=== PATIENT | female | born 1985 | race Caucasian/White ===

== ENCOUNTER 2019-05-28 15:39 | Emergency (ER) | payer MEDICAID ==
[~2019-05-28] VITALS: Ht 160 cm; Wt 87.1 kg
[2019-05-28 16:13] VITALS: BP 125/50
[2019-05-28 19:39] LABS: Basophils # (auto) 0.1 uL; Eosinophils # (auto) 0.2 uL; Eosinophils % (auto) 2.4 % (0.0-7.0); Hematocrit 40.7 % (36.0-46.0); Hemoglobin 13.1 g/dL (12.2-16.2); Lymphocytes % (auto) 39.2 % (10.0-50.0); Mean Corpuscular Hemoglobin 28.4 pg (28.0-32.0); Mean Corpuscular Hgb Conc. 32.2 g/dL (32.0-36.0); Mean Corpuscular Volume 88.3 fL (80.0-100.0); Monocytes # (auto) 0.5 uL; Monocytes % (auto) 5.2 % (0.0-12.0); Neutrophils # (auto) 5.4 uL; Neutrophils % (auto) 52.2 % (37.0-80.0); Nucleated Red Blood Cells % 0.1 %; Platelet Count (auto) 367 10^3/uL (140-450); Red Blood Cells 4.61 10^6/uL (4.0-5.20); Red Cell Distribution Width 15.7 % (11.8-14.3); White Blood Cell 10.3 10^3/uL (4.4-10.8)
[2019-05-28 19:50] LABS: Calcium 9.2 mg/dL (8.5-10.1)
[2019-05-28 19:53] LABS: BUN/Creatinine Ratio 15.6; Bilirubin, Total 0.3 mg/dL (0.2-1.0); Total Protein 8.4 g/dL (6.4-8.2)
[2019-05-28 19:54] LABS: INR 0.95 (0.9-1.15); Partial Thromboplastin Time 27.2 sec (23.64-32.05)
== END 2019-05-28 23:00 | disposition home or self-care (01) ==
LOC: ER 15:39
DX: Z32.01 Encounter for pregnancy test, result positive (principal); F17.210 Nicotine dependence, cigarettes, uncomplicated
CPT/HCPCS: 36415; 76801; 80053; 84702; 85025; 85610; 85730; 86850; 86900; 86901; 94761

== ENCOUNTER 2019-05-30 10:04 | Emergency (ER) | payer MEDICAID ==
[~2019-05-30] VITALS: Ht 160 cm; Wt 87.5 kg
[2019-05-30 10:51] VITALS: BP 101/35
== END 2019-05-30 11:44 | disposition home or self-care (01) ==
LOC: ER 10:04
DX: Z32.01 Encounter for pregnancy test, result positive (principal); F17.210 Nicotine dependence, cigarettes, uncomplicated; J45.909 Unspecified asthma, uncomplicated; Z98.51 Tubal ligation status; Z98.890 Other specified postprocedural states
CPT/HCPCS: 36415; 84702

== ENCOUNTER 2020-01-22 04:10 | Inpatient (IN) | payer MEDICAID ==
[2020-01-22] VITALS (11 sets, daily range): BP systolic 116–141; BP diastolic 58–92
[~2020-01-22] VITALS: Ht 160 cm; Wt 92.1 kg
[2020-01-22] MEDS ORDERED: FERR1TAB36 PO (04:53)
[2020-01-22] MEDS ORDERED: PREN-153 OR (04:53)
[2020-01-22] MEDS: LACTATED RINGER'S 1,000 ML IV SCH ×3 (06:12→17:38)
[2020-01-22 07:06] LABS: Basophils # (auto) 0.1 10 ^3/uL (0-0.2); Basophils % (auto) 0.5 % (0.0-2.0); Eosinophils # (auto) 0.2 10 ^3/uL (0-0.8); Eosinophils % (auto) 1.8 % (0.0-7.0); Hematocrit 29.9 % (36.0-46.0); Hemoglobin 10.2 g/dL (12.2-16.2); Lymphocytes # (auto) 2.6 10 ^3/uL (0.4-5.4); Lymphocytes % (auto) 22.8 % (10.0-50.0); Mean Corpuscular Hemoglobin 33.4 pg (28.0-32.0); Mean Corpuscular Hgb Conc. 34.2 g/dL (32.0-36.0); Mean Corpuscular Volume 97.8 fL (80.0-100.0); Monocytes # (auto) 0.5 10 ^3/uL (0-1.3); Monocytes % (auto) 4.2 % (0.0-12.0); Neutrophils # (auto) 8.1 10 ^3/uL (1.6-8.6); Neutrophils % (auto) 70.7 % (37.0-80.0); Platelet Count (auto) 275 10^3/uL (140-450); Red Blood Cells 3.05 10^6/uL (4.0-5.20); Red Cell Distribution Width 13.5 % (11.8-14.3); White Blood Cell 11.5 10^3/uL (4.4-10.8)
[2020-01-22 07:07] LABS: INR 1.03 (0.9-1.15); Partial Thromboplastin Time 25.4 sec (23.64-32.05)
[2020-01-22 07:10] LABS: Urine Amorphous Crystal MANY /hpf (None Seen); Urine Bacteria FEW /hpf (None Seen); Urine Blood Negative /uL (Negative); Urine Mucus FEW (None Seen); Urine Specific Gravity 1.012 (1.001-1.035); Urine WBC 5 /hpf (0 - 5)
[2020-01-22 07:28] LABS: Albumin 2.4 g/dL (3.4-5.0); Calcium 9.5 mg/dL (8.5-10.1)
[2020-01-22 07:29] LABS: Alcohol, Urine < 3.0 mg/dL (0-5); Amphetamine Screen, Urine NEGATIVE (NEGATIVE); Barbiturate Scree,Urine NEGATIVE (NEGATIVE); Benzodiazephine Screen, Urine NEGATIVE (NEGATIVE); Cannabinoid Screen, Urine NEGATIVE (NEGATIVE); Cocaine Screen, Urine NEGATIVE (NEGATIVE); Opiate Scree,Urine NEGATIVE (NEGATIVE); Phencyclidine Screen, Urine NEGATIVE (NEGATIVE)
[2020-01-22 07:34] LABS: BUN/Creatinine Ratio 9.7; Bilirubin, Total 0.3 mg/dL (0.2-1.0); Total Protein 6.3 g/dL (6.4-8.2)
[2020-01-22 07:35] LABS: Potassium 2.7 mmol/L (3.5-5.1)
[2020-01-22] MEDS ORDERED: POTASSIUM CHL 20MEQ/100ML 100 ML IV ONE ×3 (07:49→11:38)
[2020-01-22] MEDS: POTASSIUM CHL 20MEQ/100ML 100 ML IV SCH ×2 (07:57→11:57)
[2020-01-22] MEDS ORDERED: SUCCINYLCHOLINE CHLORIDE 20 MG/ML 10ML VIAL IV ONE (08:25)
[2020-01-22] MEDS ORDERED: fentaNYL CITRATE 100 MCG/2 ML VL ONE ×2 (08:26→09:36)
[2020-01-22] MEDS ORDERED: MORPHINE SULF(PF) 0.5MG/ML 10ML VIAL ONE (08:26)
[2020-01-22] MEDS ORDERED: ceFAZolin 1GM/50ML 50 ML IV SCH (09:00)
[2020-01-22] MEDS ORDERED: MORPHINE SULF INJ 2 MG/ML SYRINGE 1ML IV PRN ×2 (09:00→11:30)
[2020-01-22] MEDS ORDERED: ONDANSETRON HCL 4 MG/2 ML VIAL IV PRN ×2 (09:00→10:45)
[2020-01-22] MEDS ORDERED: ROCURONIUM 10MG/ML 10ML VIAL IV ONE (09:33)
[2020-01-22] MEDS ORDERED: CARBOPROST TROMETHAMINE 250 MCG/1ML VIAL IM ONE (09:34)
[2020-01-22] MEDS ORDERED: GLYCOPYRROLATE 0.2 MG/ML 1ML VIAL ONE (10:16)
[2020-01-22] MEDS ORDERED: OXYTOCIN 10UNIT/ML 1ML VIAL ONE (10:23)
[2020-01-22] MEDS ORDERED: HYDROmorphone HCL 2 MG/ML VL ONE (10:33)
[2020-01-22] MEDS: HYDROmorphone HCL 2 MG/ML VL IV PRN ×5 (10:34→19:04)
[2020-01-22] MEDS ORDERED: ONDANSETRON HCL 4 MG/2 ML VIAL ONE (10:38)
[2020-01-22] MEDS ORDERED: ePHEDrine SULFATE 50 MG/ML AMP IV PRN (10:45)
[2020-01-22] MEDS ORDERED: hydrALAZINE HCL 20 MG/ML VL IV PRN (10:45)
[2020-01-22] MEDS: LACT. RINGERS/OXYTOCIN 20UNITS 1,000 ML IV SCH ×2 (11:57→15:33)
[2020-01-22] MEDS ORDERED: HYDROmorphone HCL 2 MG/ML VL IV PRN (12:15)
[2020-01-22] MEDS ORDERED: ACETAMINOPHEN IV 1000 MG/100ML (10MG/ML) IV PRN (12:15)
[2020-01-22] MEDS: ACETAMINOPHEN IV 1000 MG/100ML (10MG/ML) IV PRN ×2 (15:49→21:29)
[2020-01-22] MEDS: ceFAZolin 1GM/50ML 50 ML IV SCH (17:54)
[2020-01-22] MEDS ORDERED: LACTATED RINGER'S 1,000 ML IV ONE (19:30)
[2020-01-22 20:22] LABS: Basophils # (auto) 0 10 ^3/uL (0-0.2); Basophils % (auto) 0.2 % (0.0-2.0); Eosinophils # (auto) 0 10 ^3/uL (0-0.8); Hematocrit 29.7 % (36.0-46.0); Hemoglobin 9.7 g/dL (12.2-16.2); Mean Corpuscular Hemoglobin 32.3 pg (28.0-32.0); Mean Corpuscular Hgb Conc. 32.6 g/dL (32.0-36.0); Mean Corpuscular Volume 99.2 fL (80.0-100.0); Monocytes # (auto) 0.7 10 ^3/uL (0-1.3); Monocytes % (auto) 4.4 % (0.0-12.0); Neutrophils # (auto) 13.7 10 ^3/uL (1.6-8.6); Neutrophils % (auto) 83.4 % (37.0-80.0); Platelet Count (auto) 272 10^3/uL (140-450); Red Blood Cells 2.99 10^6/uL (4.0-5.20); Red Cell Distribution Width 13.7 % (11.8-14.3); White Blood Cell 16.5 10^3/uL (4.4-10.8)
[2020-01-23] MEDS: HYDROmorphone HCL 2 MG/ML VL IV PRN ×2 (00:29→04:37)
[2020-01-23] MEDS: ceFAZolin 1GM/50ML 50 ML IV SCH ×2 (00:58→09:02)
[2020-01-23] MEDS: LACTATED RINGER'S 1,000 ML IV SCH (00:59)
[2020-01-23 03:00] VITALS: BP 113/69
[2020-01-23 04:06] LABS: RPR Non Reactive (Non Reactive)
[2020-01-23] MEDS ORDERED: SIMETHICONE 80 MG CHEWABLE TABLET PO PRN (06:45)
[2020-01-23] MEDS ORDERED: HYDROcodone-ACET 5/325MG TAB PO PRN (06:45)
[2020-01-23 07:10] VITALS: BP 117/64
[2020-01-23 07:17] LABS: Basophils # (auto) 0 10 ^3/uL (0-0.2); Basophils % (auto) 0.3 % (0.0-2.0); Eosinophils # (auto) 0.1 10 ^3/uL (0-0.8); Eosinophils % (auto) 0.4 % (0.0-7.0); Hematocrit 27.8 % (36.0-46.0); Hemoglobin 9.1 g/dL (12.2-16.2); Lymphocytes % (auto) 20.8 % (10.0-50.0); Mean Corpuscular Hemoglobin 32.8 pg (28.0-32.0); Mean Corpuscular Hgb Conc. 32.9 g/dL (32.0-36.0); Mean Corpuscular Volume 99.7 fL (80.0-100.0); Monocytes # (auto) 0.9 10 ^3/uL (0-1.3); Monocytes % (auto) 6.4 % (0.0-12.0); Neutrophils # (auto) 10.3 10 ^3/uL (1.6-8.6); Neutrophils % (auto) 72.1 % (37.0-80.0); Platelet Count (auto) 264 10^3/uL (140-450); Red Blood Cells 2.79 10^6/uL (4.0-5.20); Red Cell Distribution Width 13.4 % (11.8-14.3); White Blood Cell 14.3 10^3/uL (4.4-10.8)
[2020-01-23] MEDS: DOCUSATE SOD 100 MG CAP PO SCH ×2 (09:01→22:11)
[2020-01-23] MEDS: HYDROcodone-ACET 5/325MG TAB PO PRN ×4 (09:01→22:11)
[2020-01-23] MEDS: IBUPROFEN 800 MG TAB PO PRN ×2 (11:10→19:48)
[2020-01-23 11:15] VITALS: BP 124/79
[2020-01-23 15:10] VITALS: BP 112/64
[2020-01-23 19:10] VITALS: BP 132/70
[2020-01-23 23:10] VITALS: BP 129/70
[2020-01-24 03:00] VITALS: BP 120/68
[2020-01-24] MEDS: HYDROcodone-ACET 5/325MG TAB PO PRN ×4 (06:52→22:47)
[2020-01-24 07:15] VITALS: BP 118/78
[2020-01-24] MEDS: IBUPROFEN 800 MG TAB PO PRN (09:45)
[2020-01-24] MEDS: DOCUSATE SOD 100 MG CAP PO SCH ×2 (09:45→22:38)
[2020-01-24 11:00] VITALS: BP 134/72
[2020-01-24 15:10] VITALS: BP 134/77
[2020-01-24 19:00] VITALS: BP 126/68
[2020-01-24 22:45] VITALS: BP 135/70
[2020-01-25 03:30] VITALS: BP 140/71
[2020-01-25] MEDS: HYDROcodone-ACET 5/325MG TAB PO PRN (04:02)
[2020-01-25 07:28] VITALS: BP 132/77
== END 2020-01-25 08:45 | disposition home or self-care (01) | DRG 540 ==
LOC: LDRP 04:10 → OBSVTOIN 04:10 → LDRP 08:37
PROVIDERS: ADMIT Obstetrics & Gynecology; ATTEND Obstetrics & Gynecology
PROC: 0UB70ZZ Excision of Bilateral Fallopian Tubes, Open Approach (ICD-10-PCS; 2020-01-22)
PROC: 10D00Z1 Extraction of Products of Conception, Low, Open Approach (ICD-10-PCS; principal; 2020-01-22 08:37)
DX: O34.211 Maternal care for low transverse scar from previous cesarean delivery (principal); K21.9 Gastro-esophageal reflux disease without esophagitis; Z37.0 Single live birth; Z3A.38 38 weeks gestation of pregnancy; O99.62 Diseases of the digestive system complicating childbirth; Z30.2 Encounter for sterilization
CPT/HCPCS: 36415; 51702; 59025; 80053; 80307; 81001; 81002; 84112; 84132; 85025; 85610; 85730; 86592; 86850; 86900; 86901; 94760; 96365; 96366; 96375; G0378; J0131; J0330; J0690; J2405; J2590; J3480; J7060

== ENCOUNTER → 2022-07-06 | Outpatient (CLI) | payer MEDICAID ==
[~2022-07-06] MED LIST: FERR1TAB36 PO; PREN1TAB71 OR
== END | disposition home or self-care (01) ==
LOC: LAB 09:23
PROVIDERS: ATTEND Obstetrics & Gynecology
DX: R87.610 Atypical squamous cells of undetermined significance on cytologic smear of cervix (ASC-US) (principal)